=== PATIENT | female | born 1940 | race Caucasian/White ===

== ENCOUNTER 2017-01-20 05:42 | Day surgery (SDC) | payer OTHER ==
[~2017-01-20] VITALS: Ht 160 cm; Wt 83.0 kg
--- NOTE | ~2017-01-20 | O ---
[facility] [place] [address] OPERATIVE REPORT Name: EDEN MULLINS Room #: 150-9 [facility] M.R.#: [id number] Admission: 01/20/17 Attend Phys: Ace Jackson MD Discharge: Date of : 40 Report #: [id number] THIS REPORT FOR: //name// CC: Param NAVA MCKITTRICK DATE OF SERVICE: 01/20/2017 DATE OF SURGERY: 01/20/2017 PREOPERATIVE DIAGNOSIS: Recently diagnosed uterine cancer, need Port-A-Cath for chemotherapy. POSTOPERATIVE DIAGNOSIS: Recently diagnosed uterine cancer, need Port-A-Cath for chemotherapy. PROCEDURE PERFORMED: Port-A-Cath placement via a left subclavian approach. PowerPort placed. ANESTHESIA: IV sedation. COMPLICATIONS: None. BLOOD LOSS: 5 mL. SURGEON: Ace Jackson M.D. PROCEDURE NOTE: With the patient under heavy sedation, the chest on the right-sided neck was prepped and draped in sterile fashion. IV antibiotic was administered. Timeout was performed. A 0.25% Marcaine was used to anesthetize the skin underneath the right clavicle. A skin incision about 3 cm was made. This was taken down through the fascia. The above the pectoralis fascia was dissected inferiorly, creating a pocket for the port. Next, the vein was cannulated. On the first pass, I think it was too lateral and I moved more medially and I was able to successfully cannulated the vein. The wire was threaded through the needle and after a distance, the wire met resistance. On fluoroscopy, the wire was going up into the right neck on the internal jugular vein. The wire was pulled back to the subclavian jugular junction and then the wire was redirected and it did go down to the superior vena cava. The fluoroscopy machine was pulled back. The port was then fitted to the catheter. The catheter was measured at 19 cm. The special locking device was used to secure the catheter to the port. The port and the catheter were flushed with heparinized saline. A dilator was then placed over the wire. The Peel-Apart sheath in the dilator was split over the wire together. The wire and dilator [facility] [address] [place] [address] OPERATIVE REPORT Name: EDEN MULLINS Room #: 150-9 [facility] M.R.#: [id number] Admission: 01/20/17 Attend Phys: Ace Jackson MD Discharge: Date of : 40 Report #: [id number] was removed. The catheter was then placed inside the Peel-Apart sheath. The sheath was peeled apart leaving the catheter in the vein. The port was then placed in the pocket. Antibiotic irrigation was performed. The port was sutured to the pectoralis fascia at two separate points on the port using 2-0 Prolene suture. Subcutaneous tissue was then brought together with 3-0 PDS. Skin was closed with 5-0 PDS running subcuticular fashion. The port was then accessed with a supply Briggs needle. The blood return was obtained. Heparinized saline solution was then flushed through the cord and catheter. Needle was drawn. Dermabond was applied over the incision. Telfa and OpSite used for dressing. The patient was awaken and taken to the recovery room. By: [id number] Ace Jackson MD /nt
--- NOTE | ~2017-01-20 | EKG ---
[address] [address] ELECTROCARDIOGRAM REPORT Name: EDEN MULLINS Room #: 150-9 [facility]..#: [id number] Admission: 01/20/17 Attend Phys: Ace Jackson MD Discharge: Date of : 40 Report #: [id number] THIS REPORT FOR: //name// [facility] Test Date: 2017-01-20 Test Time: 13:11:24 Pat Name: EDEN MULLINS Department: Room: 150 9 Gender: F Sales Order Administrator: JAYLENE : 1940 Requested By: Ace Jackson Order Number: [id number] : Jairo Méndez Measurements Intervals [place] Rate: 67 P: 39 AK: 165 QRS: 65 QRSD: 104 T: 19 QT: 416 QTc: 439 Interpretive Statements Sinus rhythm Probable left atrial enlargement No previous ECG available for comparison Electronically Signed On 01-22-2017 22:10:43 CDT by Jairo Méndez [email or web address] <ELECTRONICALLY SIGNED> By: Jairo Méndez MD 01/22/17 2210 1311 1311 Jairo Méndez MD /DEBBIE
[~2017-01-20 05:42] MED LIST: ALDACTONE50 MG PO; AMBIEN PO; AROMASIN25 MG PO; ATENOLOL 50MG T50 M1 PO; GLUCOPHAGE XR500 MG PO; HYDROCODONE-APA1 TA1 PO; KENALOG-4040 MG/ML; KLONOPIN1 MG PO; LOSARTAN-HCTZ1 EAC3 PO; LOVAZA1000 MG PO; NEXIUM40 MG PO; PROTONIX 20 MG20 M1 PO; PROZAC PO; SYNTHROID125 MCG PO; TYLENOL325 MG PO; VITAMIN B-6100 MG PO; VITAMIN D33000 UNIT PO; VYVANSE70 MG PO; XGEVA120 MG/1.7 SQ
[2017-01-20 12:40] LABS: HEMATOCRIT 42.3 % (37.0-47.0)
[2017-01-20 13:49] VITALS: BP 127/67
[2017-01-20] MEDS ORDERED: NORCO 5-325 TA1 EACH PO (16:17)
[2017-01-20 16:43] VITALS: BP 127/67
== END 2017-01-20 17:00 ==
LOC: OR 05:42 → TBA 05:42 → OR 09:53
PROVIDERS: Surgery
DX: Z45.2 Encounter for adjustment and management of vascular access device (principal); I10 Essential (primary) hypertension; K21.9 Gastro-esophageal reflux disease without esophagitis; E11.9 Type 2 diabetes mellitus without complications; Z85.42 Personal history of malignant neoplasm of other parts of uterus; Z98.890 Other specified postprocedural states; Z90.711 Acquired absence of uterus with remaining cervical stump
CPT/HCPCS: 50010; 50101; 50386; 50403; 51938; 54118; 56524; 56525; 62110; 62850; 70005